=== PATIENT | male | born 1980 | race Caucasian/White ===

== ENCOUNTER → 2016-08-27 | Outpatient (CLI) | payer BC ==
[2014-06-27 22:46] VITALS: BP 162/96
--- NOTE | 2016-08-27 07:29 | RAD ---
HISTORY: Intestinal malabsorption Study: Acute abdominal series Comparison: None Findings: The trachea is midline. The cardiac silhouette is unremarkable. The lungs are clear without focal infiltrate or effusion. The bony thorax is unremarkable. Flat plate and upright evaluation of the abdomen demonstrates a normal bowel gas pattern. No pneumop eritoneum is identified.. No pathological soft tissue mass or calcification can be observed. The b boubacar structures are grossly intact. IMPRESSION: 1. No acute cardiopulmonary disease. 2. No evidence for acute abdominal pathology identified. Reported By:
== END ==
LOC: RAD 06:55
PROVIDERS: ATTEND Obstetrics & Gynecology Obstetrics
DX: K59.01 Slow transit constipation (principal)
CPT/HCPCS: 74022

== ENCOUNTER → 2017-02-25 | Outpatient (CLI) | payer BC ==
[2014-06-27 22:46] VITALS: BP 162/96
--- NOTE | 2017-02-25 09:16 | RAD ---
HISTORY: Chest and abdominal pain. Acute abdominal series. Findings: The trachea is midline. The cardiac silhouette is unremarkable. The lungs are clear without focal i nfiltrate or effusion. The bony thorax is unremarkable. There is a large amount of stool. Flat plate and upright evaluation of the abdomen demonstrates a nonspecific and nonobstructive bowel gas pattern. No free peritoneal air is seen. No pathological soft tissue abdominal mass effect or foc al calcification can be observed. The bony structures are grossly intact. IMPRESSION: 1. No acute cardiopulmonary disease. 2. No evidence for acute abdominal pathology. 3. Large quantity of colonic stool present. Reported By:
== END ==
LOC: RAD 06:51
PROVIDERS: ATTEND Obstetrics & Gynecology Obstetrics
DX: R10.84 Generalized abdominal pain (principal)
CPT/HCPCS: 74022